=== PATIENT | male | born 1990 | race Caucasian/White ===

== ENCOUNTER 2019-04-21 20:51 | Emergency (ER) | payer OTHER ==
[~2019-04-21] VITALS: Ht 172.7 cm; Wt 78.0 kg
[2019-04-21] MEDS ORDERED: ZOLOFT50 MG (21:07)
[2019-04-21] MEDS ORDERED: RESTORIL15 M1 (21:07)
[2019-04-21] MEDS ORDERED: ATIVAN1 M1 (21:07)
== END 2019-04-21 22:19 | disposition home or self-care (01) ==
LOC: ER 20:51
DX: J03.80 Acute tonsillitis due to other specified organisms (principal); B96.89 Other specified bacterial agents as the cause of diseases classified elsewhere

== ENCOUNTER 2019-04-28 21:32 | Emergency (ER) | payer OTHER ==
[~2019-04-28] VITALS: Ht 172.7 cm; Wt 79.8 kg
[~2019-04-28 21:32] MED LIST: ATIVAN1 M1; RESTORIL15 M1; ZOLOFT50 MG
== END 2019-04-29 00:09 | disposition home or self-care (01) ==
LOC: ER 21:32
DX: J03.80 Acute tonsillitis due to other specified organisms (principal)

== ENCOUNTER 2022-11-18 02:47 | Emergency (ER) | payer OTHER ==
[~2022-11-18] VITALS: Ht 165.1 cm; Wt 68.0 kg
[2022-11-18] MEDS ORDERED: TRANXENE T-TAB7.5 MG (02:56)
== END 2022-11-18 05:46 | disposition home or self-care (01) ==
LOC: ER 02:47
DX: S02.31XA Fracture of orbital floor, right side, initial encounter for closed fracture (principal); S02.121A Fracture of orbital roof, right side, initial encounter for closed fracture; X83.8XXA Intentional self-harm by other specified means, initial encounter; Y93.9 Activity, unspecified; Y92.89 Other specified places as the place of occurrence of the external cause; Y99.9 Unspecified external cause status; J34.2 Deviated nasal septum